=== PATIENT | female | born 1985 | race African-American/Black ===

== ENCOUNTER 2018-03-04 21:11 | Emergency (ER) | payer OTHER, MEDICARE ==
[2018-03-04 21:24] VITALS: BP 134/86
--- NOTE | 2018-03-04 23:38 | ED GENERAL ADULT ---
History of Present Illness General Chief Complaint: General Adult Stated Complaint: PT STOMACH BAD PAIN AND LEGS ARE SWOLLEN Source: patient, family Exam Limitations: no limitations Vital Signs & Intake/Output Vital Signs & Intake/Output Vital Signs Date Time Temp Pulse Resp B/P B/P Pulse O2 O2 Flow FiO2 Mean Ox Delivery Rate 03/04 2124 96.9 76 20 134/86 ED Intake and Output 03/05 0000 03/04 1200 Intake Total 0 Output Total Balance 0 Intake, Oral 0 Allergies Coded Allergies: ciprofloxacin (From CIPRO) (RASH 03/04/18) Uncoded Allergies: CONTRAST DYE (UNKNOWN 03/04/18) Triage Note: PER PT CHRONIC PANCREATITIS CO PAIN TO ABD SWELLING AND SWELLING TO LEGS FOR ALL YR REPORTS GETTING WORSE LMP ON IUD Triage Nurses Notes Reviewed? yes Onset: Last week Duration: week(s):, constant, continues in ED, getting worse Timing: recent history Injury Environment: home No Modifying Factors: none LMP (ages 10-50): unknown : No Patient currently breastfeeds: No HPI: 1-2 weeks prior to admission patient complains of increasing abdominal girth bipedal edema. She also complains of chronic abdominal pain secondary to pancreatitis. She denies fever chills nausea vomiting diarrhea chest pain cough shortness breath headache dysuria rash bleeding. Tuesday she is due to meet her new GI consultants at [facility] Past History Travel History Traveled to [place] past 21 day No Medical History Any Pertinent Medical History? see below for history Neurological: NONE EENT: NONE Cardiovascular: NONE Respiratory: NONE Gastrointestinal: CHRONIC PANCREATITIS Hepatic: NONE Renal: NONE Musculoskeletal: NONE Psychiatric: NONE Endocrine: IDDM Surgical History Surgical History: non-contributory Psychosocial History What is your primary language Tristanian Tobacco Use: Never used Family History Hx Contributory? No Review of Systems Review of Systems Constitutional: Reports: no symptoms. EENTM: Reports: no symptoms. Respiratory: Reports: no symptoms. Cardiovascular: Reports: see HPI, peripheral edema. GI: Reports: see HPI, abdominal pain. Genitourinary: Reports: no symptoms. Musculoskeletal: Reports: no symptoms. Skin: Reports: no symptoms. Neurological/Psychological: Reports: no symptoms. Hematologic/Endocrine: Reports: no symptoms. Immunologic/Allergic: Reports: no symptoms. All Other Systems: Reviewed and Negative Physical Exam Physical Exam General Appearance: well developed/nourished, alert, awake, anxious, obese Head: atraumatic, normal appearance Eyes: Bilateral: normal appearance, PERRL, EOMI. Ears, Nose, Throat: normal pharynx, normal ENT inspection, hearing grossly normal Neck: normal inspection, supple, full range of motion, no midline tenderness Respiratory: normal breath sounds, chest non-tender, no respiratory distress, quiet respiration, lungs clear Cardiovascular: regular rate/rhythm, normal peripheral pulses, norml femoral pulses equa Peripheral Pulses: 4+ carotid (R), 4+ carotid (L) Gastrointestinal: normal bowel sounds, soft, no organomegaly, tenderness Back: normal inspection, normal range of motion, no vertebral tenderness Extremities: normal capillary refill, normal range of motion, pedal edema, swelling Neurologic/Psych: no motor/sensory deficits, awake, alert, oriented x 3, normal gait, normal mood/affect, 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 Skin: intact, normal color, warm/dry Lymphatic: no anterior cervical patt Core Measures ACS in differential dx? No CVA/TIA Diagnosis: No Sepsis Present: No Sepsis Focused Exam Completed? No Progress Differential Diagnoses I considered the following diagnoses in my evaluation of the patient: Dependent edema renal insufficiency chronic pain syndrome electolyte abnormality Plan of Care: Orders Procedure Date/time Status TROPONIN LEVEL 03/04 2328 Complete MAGNESIUM 03/04 232 Complete LIPASE 03/04 2328 Complete COMPREHENSIVE METABOLIC PANEL 03/04 2328 Complete CBC WITHOUT DIFFERENTIAL 03/04 2328 Complete B-TYPE NATRIURETIC PEP (BNP) 03/04 2328 Complete AMYLASE 03/04 2328 Complete Current Medications Sig/Linette Start time Last Medication Dose Stop Time Status Admin Hydromorphone HCl 4 MG ONCE ONE 03/05 0200 UNVr (Dilaudid) 03/05 0201 Laboratory Tests 03/05/18 0026: Anion Gap 10, Estimated GFR 40 L, BUN/Creatinine Ratio 17.3, Glucose 153 H, Calcium 8.1 L, Magnesium 1.6, Total Bilirubin 0.1 L, AST 113 H, ALT 72 H, Alkaline Phosphatase 171 H, Troponin I < 0.01, His-E-Hbhjhkdptqz Pept 39.5, Total Protein 6.5, Albumin 3.3 L, Globulin 3.2, Albumin/Globulin Ratio 1.0 L, Amylase 87, Lipase 265, CBC w Diff NO MAN DIFF REQ, RBC 3.67 L, MCV 72.5 L, MCH 22.7 L, MCHC 31.3 L, RDW 19.6 H, MPV 9.6, Gran % 74.9, Lymphocytes % 15.9 L, Monocytes % 7.2, Eosinophils % 2.0, Basophils % 0, Absolute Granulocytes 4.0 , Absolute Lymphocytes 0.8 L, Absolute Monocytes 0.4, Absolute Eosinophils 0.1, Absolute Basophils 0 Initial ED EKG: none Departure Departure Time of Disposition: 147 Disposition: HOME OR SELF CARE Condition: Stable Clinical Impression Primary Impression: Dependent edema Secondary Impressions: Chronic pancreatitis, Renal insufficiency Referrals: Unknown (PCP/Family) Additional Instructions: Increase your lasix to 4 tabs daily Departure Forms: Customer Survey General Discharge Information Critical Care Note Critical Care Note Critical Care Time: non-applicable
[2018-03-05 00:40] LABS: ABSOLUTE BASOPHIL COUNT 0 /CUMM (0.0-0.2); ABSOLUTE EOSINOPHIL COUNT 0.1 /CUMM (0.0-0.7); ABSOLUTE LYMPH COUNT 0.8 /CUMM (1.2-3.4); ABSOLUTE MONOCYTE COUNT 0.4 /CUMM (0.10-0.60); BASOPHIL % 0 % (0.0-2.0); GRANULOCYTE % 74.9 % (42.2-75.2); HEMATOCRIT 26.6 % (37-47); MEAN CORPUSCULAR HGB 22.7 PG (27.0-31.0); MEAN CORPUSCULAR HGB CONC 31.3 G/DL (33.0-37.0); MEAN CORPUSCULAR VOLUME 72.5 FL (81.0-99.0); MEAN PLATELET VOLUME 9.6 FL (7.4-10.4); PLATELET COUNT 341 /CUMM (130-400); RBC DISTRIBUTION WIDTH 19.6 % (11.5-14.5); RED BLOOD CELL CT 3.67 /CUMM (4.20-5.40); WHITE BLOOD CELL COUNT 5.3 /CUMM (4.8-10.8)
== END 2018-03-05 02:06 ==
LOC: ERH 21:11
PROVIDERS: Emergency Medicine
DX: N28.9 Disorder of kidney and ureter, unspecified (principal); K86.1 Other chronic pancreatitis; R60.9 Edema, unspecified
CPT/HCPCS: 96372; J1200